=== PATIENT | female | born 1990 | race Caucasian/White ===

== ENCOUNTER 2021-03-01 09:40 | Emergency (ER) | payer OTHER ==
[~2021-03-01 09:40] MED LIST: FLAGYL500 MG PO; IBUPROFEN600 MG PO; MACROBID 100 M100 MG PO; NORFLEX 100 MG100 MG PO; OMNICEF 300 MG300 MG PO; ZOFRAN ODT 4 MG4 MG SL
== END 2021-03-01 11:36 | disposition home or self-care (01) ==
LOC: ER1 09:40
DX: S29.012A Strain of muscle and tendon of back wall of thorax, initial encounter (principal); F17.210 Nicotine dependence, cigarettes, uncomplicated; Z90.49 Acquired absence of other specified parts of digestive tract; X50.0XXA Overexertion from strenuous movement or load, initial encounter
CPT/HCPCS: 96372; 99283; J1885

== ENCOUNTER 2021-11-18 20:49 | Emergency (ER) | payer OTHER | END 2021-11-19 00:03 | disposition home or self-care (01) | LOC: ER1 20:49 | DX: S70.11XA Contusion of right thigh, initial encounter (principal); S50.01XA Contusion of right elbow, initial encounter; I10 Essential (primary) hypertension; Z88.0 Allergy status to penicillin; Z88.5 Allergy status to narcotic agent; Z88.8 Allergy status to other drugs, medicaments and biological substances; Y04.2XXA Assault by strike against or bumped into by another person, initial encounter; Y92.009 Unspecified place in unspecified non-institutional (private) residence as the place of occurrence of the external cause | CPT/HCPCS: 70490; 73060; 73080; 99284 ==

== ENCOUNTER 2022-02-01 09:07 | Emergency (ER) | payer MEDICARE ==
[2022-02-01 09:59] LABS: HEMOGLOBIN 14.4 gm/dl (12.3-15.3); RED BLOOD COUNT 4.44 M/UL (4.00-5.10); WHITE BLOOD COUNT 10.5 K/UL (4.5-11.0)
[2022-02-01 10:28] LABS: BUN/CREATININE RATIO 22 (0-10)
[2022-02-01] MEDS ORDERED: HYDROCODON-ACE1 EAC4 PO (14:30)
[2022-02-01] MEDS ORDERED: BACTROBAN OINT22 GM EXT (14:32)
[2022-02-01] MEDS ORDERED: ZITHROMAX250 MG PO (17:16)
== END 2022-02-01 15:15 | disposition home or self-care (01) ==
LOC: ER1 09:07
PROVIDERS: Emergency Medicine
DX: S06.0X9A Concussion with loss of consciousness of unspecified duration, initial encounter (principal); S13.4XXA Sprain of ligaments of cervical spine, initial encounter; S93.402A Sprain of unspecified ligament of left ankle, initial encounter; S40.011A Contusion of right shoulder, initial encounter; S50.02XA Contusion of left elbow, initial encounter; S20.212A Contusion of left front wall of thorax, initial encounter; S50.851A Superficial foreign body of right forearm, initial encounter; M51.26 Other intervertebral disc displacement, lumbar region; F17.200 Nicotine dependence, unspecified, uncomplicated; V80.010A Animal-rider injured by fall from or being thrown from horse in noncollision accident, initial encounter
CPT/HCPCS: 70450; 71045; 71260; 72125; 73030; 73080; 73090; 73610; 73630; 80053; 82550; 82553; 84484; 84702; 85025; 90471; 90715; 99284; Q9967

== ENCOUNTER 2022-04-02 06:36 | Emergency (ER) | payer OTHER ==
[~2022-04-02 06:36] MED LIST changes: +BACTROBAN OINT22 GM EXT; +HYDROCODON-ACE1 EAC4 PO; +ZITHROMAX250 MG PO
== END 2022-04-02 08:10 ==
LOC: ER1 06:36
DX: R07.89 Other chest pain (principal); F17.200 Nicotine dependence, unspecified, uncomplicated; Z79.899 Other long term (current) drug therapy
CPT/HCPCS: 99285